=== PATIENT | male | born 1935 | race Caucasian/White ===

== ENCOUNTER 2024-02-17 12:57 | Outpatient (AMB) | payer MEDICARE, OTHER, SELFPAY ==
--- NOTE | 2024-02-17 12:57 | MHC.OFFWIV ---
Intake Vital Signs 02/17/24 12:59 Height 5 ft 7 in Weight 191 lb BMI 29.9 BP 188/100 H Blood Pressure Location Rt brachial Position Sitting Pulse 56 Pulse Source Pulse Oximeter Temp 97.7 F Temp Source Temporal Artery Scan Pulse Oximetry (%) 94 Oxygen Delivery Method Room Air Intake Visit Reasons: left foot neuropathy, big toe left gout Intake Note: pt c/o LT foot neuropathy and gout in LT great toe. Patient Tobacco Use Status: Former Tobacco user Allergies No Known Allergies Allergy (Verified 02/17/24 13:03) Do you need a note to return to daycare/school/sports/work: No HPI HPI Comments History of Present Illness Details This is an 88-year-old male who presented to the walk-in clinic complaining of left toe pain/swelling. Patient states his left big toe was painful, swollen, and erythematous this morning when he got out of the shower. Patient states he took an extra dose of his allopurinol and his symptoms actually seemed to improve; however, there was still mild swelling/erythema the foot so he decided to come for further evaluation. Patient denies any significant pain of the toe/foot at this time. Of note, the patient recently had a long car ride to [place]. [facility] Social History Patient Tobacco Use Status: Former Tobacco user Review of Systems Const All systems reviewed & are unremarkable except as noted in HPI and below Reports no additional complaints Eyes Reports no additional complaints ENT Reports no additional complaints Card Reports no additional complaints Resp Reports no additional complaints GI Reports no additional complaints Reports no additional complaints Musc Reports no additional complaints Skin/Breast Reports system reviewed and no additional complaints, except as documented Neuro Reports no additional complaints Psych Reports no additional complaints Endo Reports no additional complaints Elder/Lymph Reports no additional complaints Aller/Immun Reports no additional complaints Physical Exam Vital Signs: Last Vital Signs Temp 97.7 F 02/17/24 12:59 Pulse 56 02/17/24 12:59 BP 188/100 H 02/17/24 12:59 Pulse Ox 94 02/17/24 12:59 Oxygen Delivery Method Room Air 02/17/24 12:59 BMI result Body Mass Index 29.9 Const Other: Vital signs reviewed. Constitutional: Non-toxic appearing. No acute distress. Well-developed and well-nourished. HEENT: Normocephalic and atraumatic. Skin: Warm and dry. There is minimal blotchy erythema to the left foot without lymphangitic streaking or warmth. There is no erythema of the 1st MCP joint. Neck: Full and painless range of motion. Cardio: Regular rate. There is minimal pedal edema of the left foot. Pulmonary: No respiratory distress. No accessory muscle usage. Gastrointestinal: Soft and nondistended. Genitourinary: No CVA tenderness. Musculoskeletal: Normal range of motion in joints throughout the body. No deformity or other signs of injury. Neuro: Alert and oriented x4. Cranial nerves 2-12 grossly intact. No focal deficits appreciated. Psych: Normal mood and affect. Assessment & Plan Assessment & Plan (1) Swelling of left foot: Code(s): M79.89 - Other specified soft tissue disorders Plan: This is an 88-year-old male who presented to the walk-in clinic complaining of pain/swelling/erythema of his left big toe and foot. Patient states he took an extra dose of allopurinol and his symptoms actually significantly improved. On physical examination, he has minimal blotchy erythema and swelling of the left foot without significant warmth or tenderness to palpation. Given the patient recently had a long car ride, an ultrasound venous duplex of the left lower extremity was obtained which was negative for DVT. I called the patient to discuss the ultrasound results and spoke with him and he states that his symptoms have completely resolved. The initial plan was to trial prednisone for possible acute gouty arthritis; however, the patient states that he is okay with a wait and see approach given his symptoms have resolved and I think that is reasonable as the side effects of steroids likely outweigh the benefits at this point. Patient was advised to follow-up here or proceed to the emergency room if he were to have recurrent symptoms. Patient verbalizes understanding and he is in agreement with the plan. Orders: Orders US venous duplex LE LT Today M79.662 - Pain in left lower leg, M79.89 - Other specified soft tissue disorders Coding Level of Care Code Est Pt Level 3 (96404) Diagnoses Swelling of left foot M79.89
[2024-02-17 12:59] VITALS: BP 188/100; PULSE 56; TEMP 36.5; O2SAT 94; BMI 29.9
== END 2024-02-17 14:23 | disposition home or self-care (01) ==
PROVIDERS: Visit Provider Physician Assistant Medical
DX: M79.89 Other specified soft tissue disorders (principal)
CPT/HCPCS: 99213

== ENCOUNTER 2024-02-17 14:30 | Outpatient (REF) | payer MEDICARE, OTHER, SELFPAY ==
--- NOTE | ~2024-02-17 | US_ITS ---
EXAMINATION: US VENOUS ULTRASOUND WITH DOPPLER LOWER EXTREMITY, LEFT CLINICAL INFORMATION: Left lower limb pain COMPARISON: None available. TECHNIQUE: Ultrasound of the deep veins is performed from the hip to the calf with compression sonography and color and pulse Doppler assessment. Spectral analysis with color-flow imaging is performed. FINDINGS: There is normal venous compression and respiratory variation and augmented flow. The visualized common femoral vein, superficial femoral vein, profunda femoral vein, popliteal vein, and the trifurcation region shows no evidence of deep venous thrombosis. There is no significant popliteal fossa cyst. If the patient's symptoms persist, followup ultrasound in 5 days 7 days might be of value to exclude proximal propagation from a non-visualized calf vein. US/US venous duplex LE IMPRESSION: No DVT demonstrated in the left lower extremity.
== END 2024-02-17 14:31 | disposition home or self-care (01) ==
LOC: HO.HMGCX 14:30
PROVIDERS: PCP Internal Medicine; Visit Provider Physician Assistant Medical
DX: M79.662 Pain in left lower leg (principal); M79.89 Other specified soft tissue disorders
CPT/HCPCS: 93971